=== PATIENT | female | born 1980 | race Caucasian/White ===

== ENCOUNTER 2018-11-27 16:35 | Outpatient (CLI) | payer OTHER ==
[~2018-11-27] VITALS: Ht 152.4 cm; Wt 66.5 kg
[2018-11-27] MEDS ORDERED: PREN-93 PO (16:53)
[2018-11-27 16:54] VITALS: BP 127/81; PULSE 86; RESP 18; Ht 152.4 cm; Wt 66.5 kg
[2018-11-27] MEDS ORDERED: DEXTROSE 5%-LR 1,000 ML IV SCH (19:00)
--- NOTE | 2018-11-27 22:10 | PN ---
Triage Information Date/Time 11/27/18 Reason for visit: sent from clinic for elavation of blood pressure Weeks of Gestation 37w5d /Para Diabetes: none Hypertention: induced Objective Vital Signs Date Temp Pulse Resp B/P (MAP) Pulse Ox O2 O2 Flow FiO2 Time Delivery Rate 11/27/18 98.8 86 18 127/81 Room Air 16:54 (96) multiple BP 123/72 118/74 Heart Rate: 140's Heart Rate Comments CAT I tracing Contractions: >10 Minutes Apart Exam no pretibial edema DTR nl Results/Medications Result Diagram: 11/27/18 1733 11/27/18 1733 Results 24 hrs Laboratory Tests Test 11/27/18 16:40 11/27/18 17:32 11/27/18 17:33 Urine Color YELLOW Urine Clarity CLOUDY A Urine pH 6.0 Urine Specific [place] 1.002 L Urine Ketones NEGATIVE Urine Nitrite NEGATIVE Urine Bilirubin NEGATIVE Urine Urobilinogen NEGATIVE Urine Leukocyte Esterase 3+ H Urine Microscopic RBC 34 H Urine Microscopic WBC 15 H Urine Squamous Epithelial Cells MODERATE Urine Hemoglobin 1+ H Urine Glucose NEGATIVE Urine Total Protein 1+ H Prothrombin Time 12.7 Prothrombin Time Ratio 1.0 INR International Normalized Ratio 0.94 Activated Partial Thromboplast Time 27.5 Fibrinogen 411.0 White Blood Count 8.6 Red Blood Count 3.73 L Hemoglobin 11.5 L Hematocrit 33.6 L Mean Corpuscular Volume 90.1 Mean Corpuscular Hemoglobin 30.8 Mean Corpuscular Hemoglobin Concent 34.2 Red Cell Distribution Width 13.1 Platelet Count 284 Mean Platelet Volume 11.2 H Immature Granulocytes % 0.500 H Neutrophils % 67.1 Lymphocytes % 24.4 Monocytes % 7.6 Eosinophils % 0.3 Basophils % 0.1 Nucleated Red Blood Cells % 0.0 Immature Granulocytes # 0.040 H Neutrophils # 5.8 Lymphocytes # 2.1 Monocytes # 0.7 Eosinophils # 0.0 Basophils # 0.0 Nucleated Red Blood Cells # 0.0 Sodium Level 139 Potassium Level 4.3 Chloride Level 104 Carbon Dioxide Level 22 Anion Gap 13 Blood Urea Nitrogen 16 Creatinine 0.74 Est Glomerular Filtrat Rate mL/min > 60 Glucose Level 80 Uric Acid 7.9 Calcium Level 9.4 Total Bilirubin 0.1 L Direct Bilirubin 0.00 Indirect Bilirubin 0.1 Aspartate Amino Transf (AST/SGOT) 28 Alanine Aminotransferase (ALT/SGPT) 20 Alkaline Phosphatase 171 H Total Protein 7.6 Albumin 3.7 Globulin 3.90 H Albumin/Globulin Ratio 0.94 Medications IV hydration Imaging Results BPP 06/11 TOMEKA 11.2 Disposition: Discharge Assessment/Plan A IUP 37w5d no GHTN P discharge home and RTH in 2days with 24hr urine protein collection or RTH prn with labor instructions and symptoms fro preeclampsia ABRAN ESTEVES MD Nov 27, 2018 22:10
--- NOTE | 2018-11-27 22:59 | TRIAGE ---
OB Triage Datetime Report Generated by CPN: 11/27/2018 22:59 Datetime: 11/27/2018 21:03 Stage of : OB Triage Maternal Assessment Level of Consciousness: Fully Conscious Headache: Denies Blurred Vision: No Respiratory Effort: Unlabored Breath Sounds, Left: Clear and Equal Breath Sounds, Right: Clear and Equal Nausea/Vomiting: Denies RUQ Epigastric Pain: Denies Labor Evaluation Frequency: 0 Monitor Mode: External Duration (sec)2399: 0 Pattern: Normal: <= 5 Contractions in 10 Minutes Resting Tone [place]: Relaxed Heart Rate FHR Baseline Rate: 150 Monitor Mode: External US FHR Baseline Changes: No Baseline Change Variability: Moderate 6-25 bpm Accelerations: 15X15 Decelerations: None Category: Category I Pain Presence: None/Denies Pain Type: N/A Vaginal Exam Membrane Status: Intact Datetime: 11/27/2018 18:30 Stage of : OB Triage Maternal Assessment Level of Consciousness: Fully Conscious Labor Evaluation Frequency: 6UC/HR Monitor Mode: External Duration (sec)2399: 70-120 Quality: Mild Resting Tone [place]: Relaxed Heart Rate FHR Baseline Rate: 145 Monitor Mode: External US Variability: Minimal - Undetectable to <=5 bpm Accelerations: None Decelerations: Late Category: Category II Pain Assessment Pain Scale: 0 Pain Goal: 3 Vaginal Exam Membrane Status: Intact Vaginal Bleeding: None Datetime: 11/27/2018 17:30 Stage of : OB Triage Maternal Assessment Level of Consciousness: Fully Conscious Labor Evaluation Frequency: 2UC/HR Monitor Mode: External Duration (sec)2399: 80-100 Quality: Mild Resting Tone [place]: Relaxed Heart Rate FHR Baseline Rate: 145 Monitor Mode: External US Variability: Moderate 6-25 bpm Decelerations: None Pain Assessment Pain Scale: 0 Pain Goal: 3 Vaginal Exam Membrane Status: Intact Vaginal Bleeding: None Datetime: 11/27/2018 16:51 Assessment Type: Triage Maternal Assessment Level of Consciousness: Fully Conscious DTR's/Clonus: DTRs 2+; No Clonus Headache: Denies Blurred Vision: No Respiratory Effort: Unlabored; Regular Rhythm; Equal Expansion Breath Sounds, Left: Clear and Equal Breath Sounds, Right: Clear and Equal Nausea/Vomiting: Denies RUQ Epigastric Pain: Denies Lower Extremities Edema: None Degree: None Upper Extremities Edema: None Degree: None Facial Edema: None Fall Risk Assessment History of Falling: (0) No Secondary Diagnosis: (0) No Ambulatory Aid: (0) Bedrest/Nurse Assist IV Therapy: (0) No Gait: (0) Normal/Bedrest/Immobile Mental Status: (0) Oriented to Own Ability Fall Score: 0 Fall Risk Score Definition: No Risk: No action required Datetime: 11/27/2018 16:50 Time of Arrival: 11/27/2018 16:28 EGA: 37.5 Arrived By: Ambulatory Arrived From: Dr. Hopkins Chief Complaint: PT SENT FROM CLINIC FOR EVAL. OF HBP Movement: Present Contractions: Denies/Absent Rupture of Membranes: Denies Vaginal Bleeding: None Vaginal Discharge: Denies Recent Sexual Intercouse: Denies Abdominal Trauma: Not Applicable Patient Complaints: None Time Provider Notified: 11/27/2018 16:58 Provider Notified: ESHAGHIAN Initial Plan: NST/BPP/PIH PANEL/D5LR Datetime: 11/27/2018 16:47 Monitor Mode: External Monitor Mode: External US
== END 2018-11-27 21:34 | disposition home or self-care (01) ==
LOC: OBT 16:35 → L-D 16:36 → OBT 21:34
PROVIDERS: ATTEND Obstetrics & Gynecology
DX: O13.3 Gestational [pregnancy-induced] hypertension without significant proteinuria, third trimester (principal); Z3A.37 37 weeks gestation of pregnancy
CPT/HCPCS: 36415; 76818; 80053; 81001; 84560; 85025; 85384; 85610; 85730; 96360; 96361; J7121; Z7500; G0463